=== PATIENT | male | born 1960 | race African-American/Black ===

== ENCOUNTER 2022-08-16 20:37 | Observation (INO) | payer OTHER ==
[2022-08-16] MEDS ORDERED: LACTATED RINGERS SOLUTION 1000 ML INFUS.BAG IV ONE (21:52)
[2022-08-16 22:46] LABS: BASO % 0.4 % (0-2.0); EOS % 1.3 % (0-4.5); HEMATOCRIT 37.9 % (35.4-49); HEMOGLOBIN 12.7 GM/dL (11.7-16.9); LYMPH % 17.5 % (8-40); MCH 26.8 pg (25.7-33.7); MCHC 33.4 g/dl (32.0-35.9); MEAN CELL VOLUME 80.1 fl (80-96); MEAN PLT VOLUME 7.2 fl (7.5-11.1); MONO % 8.1 % (3.8-10.2); NEUT % 72.7 % (42.8-82.8); PLATELET COUNT 203 10^3/uL (134-434); RBC 4.73 M/mm3 (4.00-5.60); RDW 13.3 % (11.9-15.9); WHITE BLOOD COUNT 6.8 K/mm3 (4.0-10.0)
[2022-08-16 22:51] LABS: INR 1.07 (0.83-1.09); PROTHROMBIN TIME (PATIENT) 12.4 SEC (9.7-13.0)
[2022-08-16 22:54] LABS: ACTIVATED PTT 28.2 SECONDS (25.2-36.5)
[2022-08-16 23:00] LABS: POTASSIUM 3.9 mmol/L (3.5-5.1)
[2022-08-16 23:03] LABS: CALCIUM 8.8 mg/dL (8.5-10.1)
[2022-08-16 23:04] LABS: ALBUMIN 3.5 g/dl (3.4-5.0); BLOOD UREA NITROGEN 15.7 mg/dL (7-18)
[2022-08-16 23:07] LABS: CREATININE 1.7 mg/dL (0.55-1.3)
[2022-08-16 23:08] LABS: BILIRUBIN,TOTAL 0.4 mg/dL (0.2-1); TOT PROT 6.8 g/dl (6.4-8.2)
[2022-08-16] MEDS ORDERED: SODIUM CHLORIDE 0.9% 500 ML INFUS.BAG IV ONE (23:52)
[2022-08-17 07:59] VITALS: RESP 18; BMI 30.4
[2022-08-17] MEDS: HEPARIN NA (PORCINE) 5,000 UNITS/ML 1ML VIAL SQ SCH ×3 (10:01→21:14)
[2022-08-17] MEDS: SODIUM CHLORIDE 1,000 ML IV SCH (10:01)
[2022-08-17 10:28] LABS: HEMOGLOBIN 12.2 GM/dL (11.7-16.9); MCH 27.1 pg (25.7-33.7); MCHC 33.1 g/dl (32.0-35.9); MEAN PLT VOLUME 7.7 fl (7.5-11.1); PLATELET COUNT 184 10^3/uL (134-434); RBC 4.51 M/mm3 (4.00-5.60); RDW 13.4 % (11.9-15.9); WHITE BLOOD COUNT 6.3 K/mm3 (4.0-10.0)
[2022-08-17 11:04] LABS: POTASSIUM 4.4 mmol/L (3.5-5.1)
[2022-08-17 11:06] LABS: ALBUMIN 3.1 g/dl (3.4-5.0); BLOOD UREA NITROGEN 15.5 mg/dL (7-18)
[2022-08-17 11:09] LABS: CREATININE 1.2 mg/dL (0.55-1.3); PHOSPHOROUS 3.8 mg/dL (2.5-4.9)
[2022-08-17 11:11] LABS: BILIRUBIN,TOTAL 0.4 mg/dL (0.2-1); TOT PROT 6.4 g/dl (6.4-8.2)
[2022-08-17 11:23] LABS: CHOLESTEROL 153 mg/dL (50-200); HDL CHOLESTEROL 52 mg/dL (40-60); LDL CHOLESTEROL (ONLY SJRH) 97 mg/dL (5-100)
[2022-08-17 14:35] LABS: EPI CELLS 11 /uL (0-25.1); HYALINE CASTS 1 /uL (0-3.1); URINE APPEARANCE CLEAR; URINE BACTERIA 77 /uL (0-1359); URINE BILIRUBIN NEGATIVE (NEGATIVE); URINE COLOR YELLOW; URINE GLUCOSE (UA) NEGATIVE (NEGATIVE); URINE KETONE NEGATIVE (NEGATIVE); URINE LEUK ESTERASE TRACE (NEGATIVE); URINE NITRITE NEGATIVE (NEGATIVE); URINE PROTEIN NEGATIVE (NEGATIVE); URINE RBC 2 /uL (0-23.9); URINE WBC 53 /uL (0-25.8)
[2022-08-18] MEDS: HEPARIN NA (PORCINE) 5,000 UNITS/ML 1ML VIAL SQ SCH (05:55)
[2022-08-18] MEDS: SODIUM CHLORIDE 1,000 ML IV SCH (05:56)
[2022-08-18 09:04] VITALS: BP 133/82; PULSE 62; TEMP 98.8
[2022-08-18 11:17] LABS: POTASSIUM 4.2 mmol/L (3.5-5.1)
[2022-08-18 11:19] LABS: CALCIUM 8.8 mg/dL (8.5-10.1)
[2022-08-18 11:20] LABS: BLOOD UREA NITROGEN 13.8 mg/dL (7-18)
[2022-08-18 11:23] LABS: CREATININE 1.2 mg/dL (0.55-1.3)
== END 2022-08-18 13:58 | disposition home or self-care (01) ==
LOC: JER 20:37 → JERBED 08-17 00:39 → J4W 08-17 07:43
PROVIDERS: ADMIT Internal Medicine; ATTEND Internal Medicine
PROC: 3E023GC Introduction of Other Therapeutic Substance into Muscle, Percutaneous Approach (ICD-10-PCS; principal; 2022-08-17)
PROC: 3E0337Z Introduction of Electrolytic and Water Balance Substance into Peripheral Vein, Percutaneous Approach (ICD-10-PCS; 2022-08-17)
DX: R55 Syncope and collapse (principal); I10 Essential (primary) hypertension; R94.4 Abnormal results of kidney function studies; Z86.711 Personal history of pulmonary embolism; J30.2 Other seasonal allergic rhinitis
CPT/HCPCS: 0241U-QW; 36415; 71046-TC-FY; 71275-TC; 76775-TC; 80048; 80053; 80061; 81003; 82550; 82553; 83036; 83735; 84100; 84443; 84484; 85025; 85027; 85379; 85610; 85730; 93005; 93010; 93970-TC; 96360; 96372; 99285-25; G0378; J1644; Q9967